=== PATIENT | male | born 1985 | race Two or more races ===

== ENCOUNTER → 2022-12-11 13:59 | Outpatient (BNVA) | payer OTHER, SELFPAY | PROVIDERS: PCP Internal Medicine; Visit Provider Physician Assistant | DX: M54.12 Radiculopathy, cervical region (principal); M51.26 Other intervertebral disc displacement, lumbar region | CPT/HCPCS: 99212 ==

== ENCOUNTER → 2023-01-20 15:29 | Outpatient (BNVA) | payer OTHER, SELFPAY | PROVIDERS: PCP Internal Medicine; Visit Provider Physician Assistant | DX: M54.12 Radiculopathy, cervical region (principal); M51.26 Other intervertebral disc displacement, lumbar region | CPT/HCPCS: 99212 ==